=== PATIENT | female | born 1985 | race Caucasian/White ===

== ENCOUNTER 2016-12-18 11:40 | Day surgery (SDC) | payer MEDICAID ==
[~2016-12-18] VITALS: Ht 167.6 cm; Wt 113.8 kg
--- NOTE | ~2016-12-18 | OR ---
PATIENT'S NAME: ITZ [facility] AGE: 31 Y [address] ROOM: [place] [address] LOCATION: [facility] [place] ADMIT DATE: 12/18/2016 OR/Procedure Report DISCHARGE DATE: FAMILY PHYSICIAN: Garret Schneider MD ATTENDING PHYSICIAN: Tong Vuong SURGEON: Tong Vuong MD MARKETING PROGRAMS SPECIALIST: DATE OF PROCEDURE: 12/18/2016 PREOPERATIVE DIAGNOSES: 1. Left ureter stone. 2. Left nephrolithiasis. ANESTHESIA: General. COMPLICATIONS: None. INDICATION FOR PROCEDURE: The patient is a 31-year-old female who had an acute onset of left flank pain approximately 10 days ago. Cystoscopy with left stent placement was performed. The patient now presents for definitive therapy. DETAILS OF PROCEDURE: After an informed consent was obtained, the patient was taken to the operating room. A general anesthetic was applied, and she was placed in dorsal lithotomy position. The groin area was prepped and draped in normal sterile fashion. Cystoscope was then introduced into the urethra and bladder without difficulty. Her left ureteral stent was removed and then a guidewire was passed beyond the stone up into the renal pelvis. The cystoscope was removed and the ureteroscope was introduced. This was driven up to the level of the stone which was fairly tight in the ureter. The holmium laser was introduced and the stone was fragmented with the laser into multiple smaller pieces. I was then able to navigate the ureteroscope beyond the stone. The ureteroscope was then removed. The cystoscope was back-loaded over the guidewire and a 6-Sami multi-length stent was passed over the guidewire up into the renal pelvis with the string attached. The patient was then transferred to the lithotripsy table and placed in the supine position. Her renal pelvic stones were then targeted with fluoroscopy. A 6 x 6 mm upper pole stone was targeted and received shocks starting at 16 kilovolts and gradually increased to 24 kilovolts. The stone received a total of 1000 shocks, it appeared to fragment well. A 2nd slightly larger stone 8 x 8 mm was then targeted with fluoroscopy and it received shocks at 24 kilovolts. It received a total of 2000 shocks and it appeared to fragment with the treatment. The patient tolerated the procedure well and was transferred to recovery room in good condition. PATIENT'S NAME: ITZ [facility] AGE: 31 Y [address] ROOM: [place] [address] LOCATION: [facility] [place] ADMIT DATE: 12/18/2016 OR/Procedure Report DISCHARGE DATE: FAMILY PHYSICIAN: Garret Schneider MD ATTENDING PHYSICIAN: Tong Vuong MD LILLY PEARSON/gracie /[id number] d: 12/20/16 0117 t: 01/01/17 1512, OPERATIVE SUMMARY
[~2016-12-18 11:40] MED LIST: BYDUREON P2 MG/0.65 SUB-Q; GLUCOPHAGE1000 MG PO
[2016-12-18] MEDS ORDERED: TYLENOL WITH C1 EACH PO (15:38)
== END 2016-12-18 16:45 | disposition disaster alternative care site (69) ==
LOC: GSDC 11:40
PROC: 0TF78ZZ Fragmentation in Left Ureter, Via Natural or Artificial Opening Endoscopic (ICD-10-PCS; principal; 2016-12-18)
PROC: 0T778DZ Dilation of Left Ureter with Intraluminal Device, Via Natural or Artificial Opening Endoscopic (ICD-10-PCS; 2016-12-18)
PROC: 0TF4XZZ Fragmentation in Left Kidney Pelvis, External Approach (ICD-10-PCS; 2016-12-18)
DX: N13.2 Hydronephrosis with renal and ureteral calculous obstruction (principal); E11.22 Type 2 diabetes mellitus with diabetic chronic kidney disease; N18.9 Chronic kidney disease, unspecified; G93.2 Benign intracranial hypertension
CPT/HCPCS: C1769; J1956; J2405; J2550; J3010; J7030